=== PATIENT | female | born 1960 | race Caucasian/White ===

== ENCOUNTER 2023-12-25 21:11 | Emergency (ER) | payer MEDICAID, OTHER ==
[~2023-12-25] VITALS: Ht 152.4 cm; Wt 68.0 kg
[2023-12-25] MEDS ORDERED: LIDOCAINE 5% (PATCH) 1 EA PATCH TP ONE (22:23)
[2023-12-25] MEDS ORDERED: CYCLOBENZAPRINE 10 MG TABLET ONE (22:23)
[2023-12-25] MEDS ORDERED: NAPROXEN 250 MG TABLET ONE ×2 (22:24)
[2023-12-25] MEDS: CYCLOBENZAPRINE 10 MG TABLET PO ONE (22:32)
[2023-12-25] MEDS: LIDOCAINE 5% (PATCH) 1 EA PATCH TP SCH (22:33)
[2023-12-25] MEDS: NAPROXEN 250 MG TABLET PO ONE (22:33)
[2023-12-26] MEDS ORDERED: CYCL10TA9 PO (00:04)
[2023-12-26] MEDS ORDERED: NAPR-1009 PO (00:04)
[2023-12-26 00:17] VITALS: BP 134/84; TEMP 98; O2SAT 99
== END 2023-12-26 00:17 | disposition home or self-care (01) ==
LOC: ER 21:17
DX: M54.9 Dorsalgia, unspecified (principal); R03.0 Elevated blood-pressure reading, without diagnosis of hypertension
CPT/HCPCS: 71100-TC